=== PATIENT | male | born 1985 | race Caucasian/White ===

== ENCOUNTER 2018-11-10 12:18 | Emergency (ER) | payer SELFPAY ==
[~2018-11-10] VITALS: Ht 165.1 cm; Wt 85.7 kg
[2018-11-10 12:28] VITALS: BP_SYST 138
[2018-11-10] MEDS ORDERED: CYCLOBENZAPRINE HCL 10 MG TABLET (FLEXERIL) PO ONE (12:45)
[2018-11-10] MEDS ORDERED: HYDROcodone/ACETAMIN 5-325 MG TAB (NORCO/ VICODIN) PO ONE (12:45)
[2018-11-10] MEDS ORDERED: MORPHINE 4 MG/ML INJ. SYRINGE IM ONE (13:45)
[2018-11-10 14:32] VITALS: BP_SYST 120
== END 2018-11-10 14:32 | disposition home or self-care (01) ==
LOC: SED 12:18
DX: M54.42 Lumbago with sciatica, left side (principal); R03.0 Elevated blood-pressure reading, without diagnosis of hypertension
CPT/HCPCS: 72110; 73502; 96372; 99283; J2270